=== PATIENT | male | born 1995 | race Caucasian/White ===

== ENCOUNTER 2018-11-29 21:45 | Emergency (ER) | payer BC ==
[~2018-11-29] VITALS: Ht 182.9 cm; Wt 75.0 kg
[2018-11-29 21:52] VITALS: TEMP 98.7
[2018-11-30 01:22] VITALS: BP 126/66; PULSE 66
== END 2018-11-30 01:22 | disposition home or self-care (01) ==
LOC: COL.ER 21:45
DX: S01.81XA Laceration without foreign body of other part of head, initial encounter (principal); Z23 Encounter for immunization; W51.XXXA Accidental striking against or bumped into by another person, initial encounter; Y93.61 Activity, american tackle football; Y92.321 Football field as the place of occurrence of the external cause

== ENCOUNTER 2018-12-05 11:39 | Emergency (ER) | payer BC ==
[2018-12-05 11:44] VITALS: BP 135/76; PULSE 73; TEMP 98.7
== END 2018-12-05 11:48 | disposition home or self-care (01) ==
LOC: COL.ER 11:39
DX: S01.81XD Laceration without foreign body of other part of head, subsequent encounter (principal)